=== PATIENT | male | born 1960 | race Caucasian/White ===

== ENCOUNTER 2017-02-16 20:22 | Inpatient (IN) | payer OTHER ==
[2017-02-16 21:54] VITALS: BMI 25.8
--- NOTE | 2017-02-16 22:10 | HP ---
CIWA Score - CIWA Score Nausea/Vomitin-Mild Nausea/No Vomiting Muscle Tremors: 3 Anxiety: 4-Mod. Anxious/Guarded Agitation: 3 Paroxysmal Sweats: 1-Minimal Palms Moist Orientation: 1-Uncertain about Date Tacttile Disturbances: 0-None Auditory Disturbances: 0-None Visual Disturbances: 0-None Headache: 1-Very Mild CIWA-Ar Total Score: 14 Admission [facility] - HPI Chief Complaint: withdrawal sx Allergies/Adverse Reactions: Allergies Allergy/AdvReac Type Severity Reaction Status Date / Time No Known Allergies Allergy Verified 04/17/16 11:19 History of Present Illness: 56 years old male with long history of alcohol xanax klonopin, cocaine opiate nicotine dependence has hypertension, hyperlipidemia, diabetes ii, hepatitis c = cirrhosis of the liver, gerd, copd, and depression, is admitted to detox patient fell 02/16/17 right foot swelling, x ray of the right foot 02/17/17 Exam Limitations: No Limitations - Ebola screening Have you traveled outside of the country in the last 21 days: No (N) Have you had contact with anyone from an Ebola affected area: No Have you been sick,other than usual withdrawal symptoms: No Do you have a fever: No - Review of Systems Constitutional: Changes in sleep, Weight Stable EENT: reports: Blurred Vision (eye glasses), Other (glaucoma) Respiratory: reports: SOB with Exertion Cardiac: reports: No Symptoms Reported GI: reports: Nausea, Poor Fluid Intake, Indigestion, Abdominal cramping : reports: No Symptoms Reported Musculoskeletal: reports: Back Pain, Joint Pain, Muscle Pain, Muscle Weakness ( right foot), Neck Pain Integumentary: reports: Other (multiple skin abrasion from fall 02/16/17 both legs) Neuro: reports: Seizure (06/2016, no treatment, cocaine related), Tremors Endocrine: reports: No Symptoms Reported Hematology: reports: No Symptoms Reported Psychiatric: reports: Judgement Intact, Depressed Other Systems: Reviewed and Negative Patient History - Patient Medical History Hx Anemia: No Hx Asthma: No Hx Chronic Obstructive Pulmonary Disease (COPD): No Hx Cancer: No Hx Cardiac Disorders: No Hx Congestive Heart Failure: No Hx Hypertension: Yes Hx Hypercholesterolemia: Yes Hx Pacemaker: No HX Cerebrovascular Accident: No Hx Seizures: Yes (2017 "early) Hx Dementia: No Hx Diabetes: Yes (NIDDM) Hx Gastrointestinal Disorders: Yes (acid reflux) Hx Liver Disease: No Hx Genitourinary Disorders: No Hx Sexually Transmitted Disorders: Yes (gonorrhea at age [age]) Hx Renal Disease (ESRD): No Hx Thyroid Disease: No Hx Human Immunodeficiency Virus (HIV): No Hx Hepatitis C: Yes Hx Depression: Yes Hx Suicide Attempt: Yes (2014 overdose) Hx Bipolar Disorder: No Hx Schizophrenia: No - Patient Surgical History Past Surgical History: Yes Hx Neurologic Surgery: No Hx Cataract Extraction: No Hx Cardiac Surgery: No Hx Lung Surgery: No Hx Breast Surgery: No Hx Breast Biopsy: No Hx Abdominal Surgery: No Hx Appendectomy: No Hx Cholecystectomy: Yes (1996) Hx Genitourinary Surgery: No Hx Orthopedic Surgery: No Anesthesia Reaction: No - PPD History Previous Implant?: Yes Documented Results: Negative w/proof Implanted On Prior [facility] Admission?: Yes Date: 04/15/16 Results: 0 mm PPD to be Administered?: No - Smoking Cessation Smoking history: Current every day smoker Have you smoked in the past 12 months: Yes Aproximately how many cigarettes per day: 40 Cigars Per Day: 0 Hx Chewing Tobacco Use: No Initiated information on smoking cessation: Yes 'Breaking Loose' booklet given: 02/16/17 - Substance & Tx. History Hx Alcohol Use: Yes Hx Substance Use: Yes Substance Use Type: Alcohol, Cocaine, Opiates, Tranquilizers Hx [facility] - Substances Abused Alprazolam (Xanax) Route: Oral Frequency: Daily Amount used: 14 mg Age of first use: 40 Date of Last Use: 02/12/17 Benzodiazepine (Klonopin) Route: Oral Frequency: Daily Amount used: 10 mg Age of first use: 39 Date of Last Use: 02/16/17 Family Disease History - Family Disease History Family Disease History: Diabetes: Grandparent, Mother (), Heart Disease : Father (), Other: Father, Mother Admission Physical Exam S - Vital Signs Vital Signs: Vital Signs - 24 hr 02/16/17 21:52 Temperature 97.0 F L Pulse Rate 58 L Respiratory 20 Rate Blood Pressure 116/72 - Physical General Appearance: Yes: Nourished, Appropriately Dressed, Mild Distress, Tremorous, Irritable, Sweating, Anxious HEENTM: Yes: Hearing grossly Normal, Normal ENT Inspection, Normocephalic, Normal Voice, Other (glaucoma both eyes) Respiratory: Yes: Chest Non-Tender, No Respiratory Distress, No Accessory Muscle Use, Hyperresonant Neck: Yes: Supple, Trachea in good position Breast: Yes: Breasts Symetrical Cardiology: Yes: Regular Rhythm, S1, S2, Bradycardia Abdominal: Yes: Non Tender, Soft, Decreased BS Genitourinary: Yes: Within Normal Limits Back: Yes: Normal Inspection Musculoskeletal: Yes: Gait Steady (cane), Back pain, Joint swelling (foot right) , Muscle Pain, Muscle weakness (right foot) Extremities: Yes: Non-Tender, Tremors, Swelling (right foot) Neurological: Yes: Alert, Normal Response, Depressed Affect Integumentary: Yes: Warm, Track Guidry, Other (multiple skin abrasion = legs from fall 02/16/17 denies head trauma) Lymphatic: Yes: Within Normal Limits - Diagnostic (1) Essential (primary) hypertension Current Visit: Yes Status: Chronic (2) Hypercholesterolemia Current Visit: Yes Status: Chronic (3) Methadone maintenance therapy patient Current Visit: Yes Status: Chronic Comment: 80 mg verification pending (4) Nicotine dependence Current Visit: Yes Status: Acute Qualifiers: Nicotine product type: cigarettes Substance use status: in withdrawal Qualified Code(s): F17.213 - Nicotine dependence, cigarettes, with withdrawal (5) Type 2 diabetes mellitus Current Visit: Yes Status: Chronic Qualifiers: Diabetes mellitus complication status: with ophthalmic complications Diabetes mellitus complication detail: with other ophthalmic complication Diabetes mellitus termite renewal inspector insulin use: without longterm use Qualified Code(s): E11.39 - Type 2 diabetes mellitus with other diabetic ophthalmic complication; Z79.4 - exterminator helper (current) use of insulin (6) Alcohol dependence with uncomplicated withdrawal Current Visit: Yes Status: Acute (7) Cocaine dependence, uncomplicated Current Visit: Yes Status: Chronic (8) GERD (gastroesophageal reflux disease) Current Visit: Yes Status: Chronic Qualifiers: Esophagitis presence: without esophagitis Qualified Code(s): K21.9 - Gastro-esophageal reflux disease without esophagitis (9) Bipolar II disorder Current Visit: Yes Status: Suspected (10) Hepatitis C Current Visit: Yes Status: Chronic Qualifiers: Viral hepatitis chronicity: unspecified Hepatic coma status: without hepatic coma Qualified Code(s): B19.20 - Unspecified viral hepatitis C without hepatic coma (11) Constipation Current Visit: Yes Status: Chronic Qualifiers: Constipation type: slow transit constipation Qualified Code(s): K59.01 - Slow transit constipation (12) Swelling of toe of right foot Current Visit: Yes Status: Acute Comment: right foot x ray pending (13) Glaucoma Current Visit: Yes Status: Chronic Qualifiers: Glaucoma type: unspecified Laterality: bilateral Qualified Code( s): H40.9 - Unspecified glaucoma Cleared for Admission [facility] - Detox or Rehab [facility] Level of Care: Medically Managed Detox Regimen/Protocol: Valium [facility] Breath Alcohol Content Breath Alcohol Content: 0 Urine Drug Screen - Results Drug Screen Negative: No Urine Drug Screen Results: ANNA-Cocaine, OPI-Opiates, BZO-Benzodiazepines, MTD- Methadone
[2017-02-16] MEDS ORDERED: diazePAM 5 MG TABLET PO PRN (22:21)
[2017-02-16] MEDS ORDERED: P-EPHED 60MG/TRIPROLIDI 2.5MG TABLET PO PRN (22:21)
[2017-02-16] MEDS ORDERED: NICOTINE POLACRILEX 4 MG GUM BC PRN (22:21)
[2017-02-16] MEDS ORDERED: diphenhydrAMINE HCL 50 MG CAPSULE PO PRN (22:21)
[2017-02-16] MEDS ORDERED: LOPERAMIDE HCL 2 MG CAPSULE PO PRN (22:21)
[2017-02-16] MEDS ORDERED: guaiFENesin/D-METHORPHAN HB 10 ML UNIT-DOSE CUPS PO PRN (22:21)
[2017-02-16] MEDS ORDERED: MAGNESIUM CITRATE 300 ML BOTTLE PO PRN (22:21)
[2017-02-16] MEDS ORDERED: diazePAM 5 MG TABLET PO ONE (22:21)
[2017-02-16] MEDS ORDERED: MENTHOL/PHENOL 1 EACH UD MM PRN (22:21)
[2017-02-16] MEDS ORDERED: MAGNESIUM HYDROX 2400MG/30ML ORAL SUSPENSION 30 ML CUP PO PRN (22:21)
[2017-02-16] MEDS ORDERED: ACETAMINOPHEN 325 MG TABLET (FP) PO PRN (22:21)
[2017-02-16] MEDS ORDERED: ALBUTEROL SO4 2.5/IPRATROPIUM 0.5 INH SOL 3 ML VIAL.NEB. NEB PRN (22:27)
[2017-02-16] MEDS ORDERED: ALBUTEROL SO4 6.7 GM HFA INHALER IH PRN (22:27)
[2017-02-16] MEDS: diazePAM 5 MG TABLET PO SCH (23:48)
[2017-02-17] MEDS: diazePAM 5 MG TABLET PO SCH ×3 (06:12→22:16)
[2017-02-17] MEDS: MAG HYDROX/AL HYDROX/SIMETH 30 ML UNIT-DOSE CUP PO PRN (06:17)
[2017-02-17] MEDS: sitaGLIPtin PHOSPHATE 100 MG TABLET (FP) PO SCH (07:42)
[2017-02-17] MEDS: LISINOPRIL 10 MG TABLET (FP) PO SCH (09:34)
[2017-02-17] MEDS: ASPIRIN 81 MG CHEWABLE TABLETS PO SCH (09:34)
[2017-02-17] MEDS: PRENATAL VITAMINS W/ FOLIC ACID TABLET (FP) PO SCH (09:34)
[2017-02-17] MEDS: METHADONE HCL 40 MG DISPERSABLE TABLET PO SCH (09:34)
[2017-02-17] MEDS: RANITIDINE HCL 150 MG TABLET (FP) PO SCH ×2 (09:34→22:16)
[2017-02-17] MEDS: NICOTINE 21 MG/24 HOURS TOPICAL PATCH TD SCH (09:36)
[2017-02-17 10:03] LABS: MCH 26.2 pg (25.7-33.7); MCHC 32.3 g/dl (32.0-35.9); MEAN PLT VOLUME 9.6 fl (7.5-11.1); PLATELET COUNT 121 K/MM3 (134-434); RDW 13.1 % (11.9-15.9); WHITE BLOOD COUNT 3.5 K/mm3 (4.0-10.0)
[2017-02-17 10:16] LABS: ALBUMIN 3.7 g/dl (3.4-5.0); ANION GAP 7 (8-16); CALCIUM 8.8 mg/dL (8.5-10.1); CO2 31 mmol/L (21-32); CREATININE 0.8 mg/dL (0.7-1.3); GLUCOSE,RANDOM 153 mg/dL (74-106); SGOT/AST 37 U/L (15-37); SGPT/ALT 32 U/L (12-78); TOT PROT 7.5 g/dl (6.4-8.2)
[2017-02-17 10:20] LABS: ALK PHOS 108 U/L (45-117); BILIRUBIN,TOTAL 0.4 mg/dL (0.2-1.0)
--- NOTE | 2017-02-17 11:15 | EKG ---
Test Reason : Blood Pressure : / mmHG Vent. Rate : 054 BPM Atrial Rate : 054 BPM P-R Int : 148 ms QRS Dur : 082 ms QT Int : 490 ms P-R-T Axes : 062 073 061 degrees QTc Int : 464 ms SINUS BRADYCARDIA MODERATE VOLTAGE CRITERIA FOR LVH, MAY BE NORMAL VARIANT BORDERLINE ECG NO PREVIOUS ECGS AVAILABLE Confirmed by ELA FELDMAN MD (2013) on 02/17/2017 11:14:56 AM Referred By: Confirmed By:ELA FELDMAN MD
--- NOTE | 2017-02-17 11:25 | CONSULT ---
[facility] Psychiatric Consult - Data Date of interview: 02/17/17 Admission source: [facility] Identifying data: This is 56 years old male with psychiatric hospitalization history, history of Schizoaffective disorder, intoxiocated with: Alcohol, Cocaine, Nicotine Substance Abuse History: - Smoking Cessation. Smoking history: Current every day smoker. Have you smoked in the past 12 months: Yes. Aproximately how many cigarettes per day: 40. Cigars Per Day: 0. Hx Chewing Tobacco Use: No. Initiated information on smoking cessation: Yes. 'Breaking Loose' booklet given : 02/16/17. - Substance & Tx. History. Hx Alcohol Use: Yes. Hx Substance Use : Yes. Substance Use Type: Alcohol, Cocaine, Opiates, Tranquilizers. Hx Substance [facility]: [facility] - Substances Abused. Alprazolam (Xanax). Route: Oral. Frequency: Daily. Amount used: 14 mg. Age of first use: 40. Date of Last Use: 02/12/17. Benzodiazepine (Klonopin). Route: Oral. Frequency: Daily. Amount used: 10 mg. Age of first use: 39. Date of Last Use: 02/16/17 Medical History: HTN, GERD, HepC+, Hypercholesterolemia, DM-2, Bilateral Glaucoma, Right Knee arthritis, MMTP 80mg poqd Psychiatric History: Patient reprots history of Bipolar Disorder, Schizoaffective disorder, reports taking prior to admission: Abilify 10mg poqd. Invega 3mg po bid. Trazodone 100mg po qhs. Pristiq 50mg poqd. Patient refusing medications during detox perotocol Physical/Sexual Abuse/Trauma History: Denies Additional Comment: Abilify 10mg poqd. Invega 3mg po bid. Trazodone 100mg po qhs. Pristiq 50mg poqd. Patient refusing medications during detox perotocol Mental Status Exam - Mental Status Exam Alert and Oriented to: Person Cognitive Function: Fair Patient Appearance: Well Groomed Mood: Apprehensive Affect: Mood Congruent Patient Behavior: Cooperative Speech Pattern: Appropriate Voice Loudness: Normal Thought Process: Goal Oriented Thought Disorder: Being Controlled Hallucinations: Denies Suicidal Ideation: Denies Homicidal Ideation: Denies Insight/Judgement: Fair Sleep: Difficulty falling asleep Appetite: Weight loss Muscle strength/Tone: Normal Gait/Station: Normal Additional Comments: Abilify 10mg poqd. Invega 3mg po bid. Trazodone 100mg po qhs. Pristiq 50mg poqd. Patient refusing medications during detox perotocol Psychiatric Findings - Problem List ([place] 1, 2,3) (1) Alcohol dependence with uncomplicated withdrawal Current Visit: Yes Status: Acute (2) Nicotine dependence Current Visit: Yes Status: Acute Qualifiers: Nicotine product type: cigarettes Substance use status: in withdrawal Qualified Code(s): F17.213 - Nicotine dependence, cigarettes, with withdrawal (3) Cocaine dependence, uncomplicated Current Visit: Yes Status: Chronic (4) Methadone maintenance therapy patient Current Visit: Yes Status: Chronic Comment: 80 mg verification pending (5) Bipolar II disorder Current Visit: Yes Status: Suspected (6) Alcohol dependence Current Visit: No Status: Acute (7) Alcohol dependence with withdrawal Current Visit: No Status: Acute Qualifiers: Complication of substance-induced condition: uncomplicated Qualified Code(s): F10.230 - Alcohol dependence with withdrawal, uncomplicated (8) Cocaine dependence Current Visit: No Status: Acute (9) Opioid dependence Current Visit: No Status: Acute (10) Schizoaffective disorder Current Visit: No Status: Chronic Qualifiers: Schizoaffective disorder type: bipolar Qualified Code(s): F25.0 - Schizoaffective disorder, bipolar type - Initial Treatment Plan Initial Treatment Plan: Abilify 10mg poqd. Invega 3mg po bid. Trazodone 100mg po qhs. Pristiq 50mg poqd. Patient refusing medications during detox perotocol
[2017-02-17] MEDS: LACTULOSE 20 GM/30 ML UDC (FOR ORAL USE ONLY) PO SCH (13:12)
--- NOTE | 2017-02-17 13:21 | PN ---
S CIWA - CIWA Score Nausea/Vomitin Muscle Tremors: 4-Moderate,w/Arms Extend Anxiety: 3 Agitation: 3 Paroxysmal Sweats: 3 Orientation: 0-Oriented Tacttile Disturbances: 3-Moderate Itch/Numb/Burn Auditory Disturbances: 2-Mild Harshness/Frighten Visual Disturbances: 0-None Headache: 0-None Present CIWA-Ar Total Score: 20 [facility] Progress Note (SOAP) Subjective: Body Aches, Sweating, Tremors, Stomach Cramping, Constipation. Objective: PT. A & O X 3, OBSERVED AMBULATING ON UNIT. NO ACUTE DISTRESS. PT. DENIES CHEST PAIN. 02/17/17 13:18 Vital Signs Temperature 98.0 F 02/17/17 09:51 Pulse Rate 73 02/17/17 09:51 Respiratory Rate 18 02/17/17 09:51 Blood Pressure 115/76 02/17/17 09:51 O2 Sat by Pulse Oximetry (%) Laboratory Tests 02/17/17 02/17/17 02/17/17 06:30 07:00 07:00 WBC 3.5 L D RBC 4.69 Hgb 12.3 Hct 38.0 MCV 81.0 MCH 26.2 MCHC 32.3 RDW 13.1 Plt Count 121 L MPV 9.6 Sodium 139 Potassium 4.2 Chloride 101 Carbon Dioxide 31 Anion Gap 7 L BUN 13 Creatinine 0.8 Creat Clearance w eGFR > 60 POC Glucometer 108 Random Glucose 153 H Calcium 8.8 Total Bilirubin 0.4 D AST 37 ALT 32 D Alkaline Phosphatase 108 Total Protein 7.5 Albumin 3.7 LABS NOTED. Assessment: 02/17/17 13:19 WITHDRAWAL SYMPTOMS. Plan: CONTINUE DETOX.
[2017-02-17] MEDS ORDERED: SENNOSIDES 8.6MG TABLET (FP) PO SCH (22:00)
[2017-02-17] MEDS: ATORVASTATIN CA 20 MG TABLET (FP) PO SCH (22:16)
[2017-02-17] MEDS: THIAMINE HCL 100 MG TABLET (FP) PO SCH (22:21)
[2017-02-17] MEDS: LATANOPROST 0.005% OPHTH SOLN 2.5ML BOTTLE OU SCH (22:54)
[2017-02-18] MEDS: MAG HYDROX/AL HYDROX/SIMETH 30 ML UNIT-DOSE CUP PO PRN ×2 (00:06→17:18)
[2017-02-18] MEDS: METHADONE HCL 40 MG DISPERSABLE TABLET PO SCH (05:55)
[2017-02-18] MEDS: sitaGLIPtin PHOSPHATE 100 MG TABLET (FP) PO SCH (07:43)
[2017-02-18] MEDS ORDERED: INSULIN (NOVOLOG) ASPART 100 UNITS/ML 10ML VIAL ONE (07:47)
[2017-02-18] MEDS: INSULIN SLIDING SCALE (NOVOLOG) 1 VIAL SQ SCH (07:56)
[2017-02-18] MEDS: ASPIRIN 81 MG CHEWABLE TABLETS PO SCH (10:41)
[2017-02-18] MEDS: diazePAM 5 MG TABLET PO SCH ×2 (10:41→22:34)
[2017-02-18] MEDS: LISINOPRIL 10 MG TABLET (FP) PO SCH (10:42)
[2017-02-18] MEDS: PRENATAL VITAMINS W/ FOLIC ACID TABLET (FP) PO SCH (10:42)
[2017-02-18] MEDS: NICOTINE 21 MG/24 HOURS TOPICAL PATCH TD SCH (10:42)
[2017-02-18] MEDS: LACTULOSE 20 GM/30 ML UDC (FOR ORAL USE ONLY) PO SCH (10:42)
[2017-02-18] MEDS: RANITIDINE HCL 150 MG TABLET (FP) PO SCH ×2 (10:42→22:34)
[2017-02-18 11:44] LABS: URINE APPEARANCE CLEAR; URINE BILIRUBIN NEGATIVE (NEGATIVE); URINE BLOOD NEGATIVE (NEGATIVE); URINE COLOR YELLOW; URINE GLUCOSE (UA) NEGATIVE (NEGATIVE); URINE KETONE NEGATIVE (NEGATIVE); URINE LEUK ESTERASE TRACE (NEGATIVE); URINE NITRITE NEGATIVE (NEGATIVE); URINE PROTEIN NEGATIVE (NEGATIVE); URINE UROBILINOGEN NEGATIVE mg/dL (0.2-1.0)
[2017-02-18 11:59] LABS: URINE RBC <1 /hpf (0-3); URINE WBC 2 /hpf (3-5)
--- NOTE | 2017-02-18 12:14 | PN ---
S CIWA - CIWA Score Nausea/Vomitin Muscle Tremors: 2 Anxiety: 2 Agitation: 2 Paroxysmal Sweats: 3 Orientation: 0-Oriented Tacttile Disturbances: 2-Mild Itch/Numbness/Burn Auditory Disturbances: 0-None Visual Disturbances: 0-None Headache: 0-None Present CIWA-Ar Total Score: 13 BHS Progress Note (SOAP) Subjective: interrupted sleep, sweats , increased dreams Objective: 02/18/17 12:14 Vital Signs Temperature 97.2 F L 02/18/17 10:27 Pulse Rate 65 02/18/17 10:27 Respiratory Rate 18 02/18/17 10:27 Blood Pressure 129/80 02/18/17 10:27 O2 Sat by Pulse Oximetry (%) Laboratory Tests 02/17/17 02/17/17 02/17/17 06:30 07:00 07:00 WBC 3.5 L D RBC 4.69 Hgb 12.3 Hct 38.0 MCV 81.0 MCH 26.2 MCHC 32.3 RDW 13.1 Plt Count 121 L MPV 9.6 Sodium 139 Potassium 4.2 Chloride 101 Carbon Dioxide 31 Anion Gap 7 L BUN 13 Creatinine 0.8 Creat Clearance w eGFR > 60 POC Glucometer 108 Random Glucose 153 H Calcium 8.8 Total Bilirubin 0.4 D AST 37 ALT 32 D Alkaline Phosphatase 108 Total Protein 7.5 Albumin 3.7 Urine Color Urine Appearance Urine pH Urine Protein Urine Glucose (UA) Urine Ketones Urine Blood Urine Nitrite Urine Bilirubin Urine Urobilinogen Ur Leukocyte Esterase Urine RBC Urine WBC RPR Titer 02/17/17 02/18/17 02/18/17 07:00 05:55 10:10 WBC RBC Hgb Hct MCV MCH MCHC RDW Plt Count MPV Sodium Potassium Chloride Carbon Dioxide Anion Gap BUN Creatinine Creat Clearance w eGFR POC Glucometer 210 Random Glucose Calcium Total Bilirubin AST ALT Alkaline Phosphatase Total Protein Albumin Urine Color Yellow Urine Appearance Clear Urine pH 6.0 Urine Protein Negative Urine Glucose (UA) Negative Urine Ketones Negative Urine Blood Negative Urine Nitrite Negative Urine Bilirubin Negative Urine Urobilinogen Negative Ur Leukocyte Esterase Trace Urine RBC <1 Urine WBC 2 RPR Titer Nonreactive pt aox3 in nad , ambulating with a cane Assessment: 02/18/17 12:15 withdrawal sx;s Plan: cont. detox increase fluids analgesic balm tinactin
[2017-02-18] MEDS: ATORVASTATIN CA 20 MG TABLET (FP) PO SCH (22:33)
[2017-02-18] MEDS: TOLNAFTATE 1% CREAM 15 GM TUBE TP SCH (22:34)
[2017-02-18] MEDS: THIAMINE HCL 100 MG TABLET (FP) PO SCH (22:34)
[2017-02-18] MEDS: LATANOPROST 0.005% OPHTH SOLN 2.5ML BOTTLE OU SCH (22:35)
[2017-02-18] MEDS: METHYL SALICYLATE/MENTHOL OINT 30 GM TUBE TP SCH (22:36)
[2017-02-19] MEDS: METHADONE HCL 40 MG DISPERSABLE TABLET PO SCH (05:49)
[2017-02-19] MEDS: sitaGLIPtin PHOSPHATE 100 MG TABLET (FP) PO SCH (07:25)
[2017-02-19] MEDS: INSULIN SLIDING SCALE (NOVOLOG) 1 VIAL SQ SCH (07:25)
[2017-02-19] MEDS: ASPIRIN 81 MG CHEWABLE TABLETS PO SCH (10:41)
[2017-02-19] MEDS: METHYL SALICYLATE/MENTHOL OINT 30 GM TUBE TP SCH ×2 (10:41→23:10)
[2017-02-19] MEDS: LACTULOSE 20 GM/30 ML UDC (FOR ORAL USE ONLY) PO SCH (10:41)
[2017-02-19] MEDS: RANITIDINE HCL 150 MG TABLET (FP) PO SCH ×2 (10:41→23:11)
[2017-02-19] MEDS: PRENATAL VITAMINS W/ FOLIC ACID TABLET (FP) PO SCH (10:41)
[2017-02-19] MEDS: TOLNAFTATE 1% CREAM 15 GM TUBE TP SCH ×2 (10:42→23:10)
[2017-02-19] MEDS: LISINOPRIL 10 MG TABLET (FP) PO SCH (10:43)
[2017-02-19] MEDS: diazePAM 5 MG TABLET PO SCH ×2 (10:43→23:11)
[2017-02-19] MEDS: NICOTINE 21 MG/24 HOURS TOPICAL PATCH TD SCH (10:44)
--- NOTE | 2017-02-19 15:21 | PN ---
[facility] Progress Note (SOAP) Subjective: Tremors, H/A, Body Aches, sweating. Objective: PT. A & O X 3, OBSERVED AMBULATING ON UNIT. NO ACUTE DISTRESS. 02/19/17 15:19 Vital Signs Temperature 98.3 F 02/19/17 10:09 Pulse Rate 63 02/19/17 10:09 Respiratory Rate 18 02/19/17 10:09 Blood Pressure 113/71 02/19/17 10:09 O2 Sat by Pulse Oximetry (%) Laboratory Tests 02/17/17 02/17/17 02/17/17 06:30 07:00 07:00 WBC 3.5 L D RBC 4.69 Hgb 12.3 Hct 38.0 MCV 81.0 MCH 26.2 MCHC 32.3 RDW 13.1 Plt Count 121 L MPV 9.6 Sodium 139 Potassium 4.2 Chloride 101 Carbon Dioxide 31 Anion Gap 7 L BUN 13 Creatinine 0.8 Creat Clearance w eGFR > 60 POC Glucometer 108 Random Glucose 153 H Calcium 8.8 Total Bilirubin 0.4 D AST 37 ALT 32 D Alkaline Phosphatase 108 Total Protein 7.5 Albumin 3.7 Urine Color Urine Appearance Urine pH Ur Specific [place] Urine Protein Urine Glucose (UA) Urine Ketones Urine Blood Urine Nitrite Urine Bilirubin Urine Urobilinogen Ur Leukocyte Esterase Urine RBC Urine WBC RPR Titer 02/17/17 02/18/17 02/18/17 07:00 05:55 10:10 WBC RBC Hgb Hct MCV MCH MCHC RDW Plt Count MPV Sodium Potassium Chloride Carbon Dioxide Anion Gap BUN Creatinine Creat Clearance w eGFR POC Glucometer 210 Random Glucose Calcium Total Bilirubin AST ALT Alkaline Phosphatase Total Protein Albumin Urine Color Yellow Urine Appearance Clear Urine pH 6.0 Ur Specific [place] 1.020 Urine Protein Negative Urine Glucose (UA) Negative Urine Ketones Negative Urine Blood Negative Urine Nitrite Negative Urine Bilirubin Negative Urine Urobilinogen Negative Ur Leukocyte Esterase Trace Urine RBC <1 Urine WBC 2 RPR Titer Nonreactive 02/19/17 05:48 WBC RBC Hgb Hct MCV MCH MCHC RDW Plt Count MPV Sodium Potassium Chloride Carbon Dioxide Anion Gap BUN Creatinine Creat Clearance w eGFR POC Glucometer 145 Random Glucose Calcium Total Bilirubin AST ALT Alkaline Phosphatase Total Protein Albumin Urine Color Urine Appearance Urine pH Ur Specific [place] Urine Protein Urine Glucose (UA) Urine Ketones Urine Blood Urine Nitrite Urine Bilirubin Urine Urobilinogen Ur Leukocyte Esterase Urine RBC Urine WBC RPR Titer LABS NOTED. Assessment: 02/19/17 15:20 WITHDRAWAL SYMPTOMS. Plan: CONTINUE DETOX.
[2017-02-19] MEDS: ATORVASTATIN CA 20 MG TABLET (FP) PO SCH (23:10)
[2017-02-19] MEDS: THIAMINE HCL 100 MG TABLET (FP) PO SCH (23:11)
[2017-02-19] MEDS: LATANOPROST 0.005% OPHTH SOLN 2.5ML BOTTLE OU SCH (23:12)
[2017-02-20] MEDS: METHADONE HCL 40 MG DISPERSABLE TABLET PO SCH (05:41)
[2017-02-20] MEDS: MAG HYDROX/AL HYDROX/SIMETH 30 ML UNIT-DOSE CUP PO PRN (05:41)
[2017-02-20] MEDS: sitaGLIPtin PHOSPHATE 100 MG TABLET (FP) PO SCH (07:51)
[2017-02-20] MEDS: INSULIN SLIDING SCALE (NOVOLOG) 1 VIAL SQ SCH (07:51)
[2017-02-20 09:23] VITALS: BP 127/78; PULSE 67; TEMP 98.8
[2017-02-20] MEDS: LACTULOSE 20 GM/30 ML UDC (FOR ORAL USE ONLY) PO SCH (09:42)
[2017-02-20] MEDS: RANITIDINE HCL 150 MG TABLET (FP) PO SCH (09:42)
[2017-02-20] MEDS: METHYL SALICYLATE/MENTHOL OINT 30 GM TUBE TP SCH (09:43)
[2017-02-20] MEDS: ASPIRIN 81 MG CHEWABLE TABLETS PO SCH (09:43)
[2017-02-20] MEDS: PRENATAL VITAMINS W/ FOLIC ACID TABLET (FP) PO SCH (09:43)
[2017-02-20] MEDS: NICOTINE 21 MG/24 HOURS TOPICAL PATCH TD SCH (09:43)
[2017-02-20] MEDS: LISINOPRIL 10 MG TABLET (FP) PO SCH (09:43)
[2017-02-20] MEDS: TOLNAFTATE 1% CREAM 15 GM TUBE TP SCH (09:43)
[2017-02-20] MEDS ORDERED: diazePAM 5 MG TABLET PO SCH (10:00)
--- NOTE | 2017-02-20 13:56 | DS ---
[facility] Detox Discharge Summary Admission Date: 02/16/17 Discharge Date: 02/20/17 - History Present History: Alcohol Dependence, Opioid Dependence, MMTP Pertinent Past History: DMT2 COPD GERD Glaucoma HLD HTN Hepatitis C Seizure disorder - Physical Exam Results Vital Signs: Vital Signs Temperature 98.8 F 02/20/17 09:23 Pulse Rate 67 02/20/17 09:23 Respiratory Rate 18 02/20/17 09:23 Blood Pressure 127/78 02/20/17 09:23 O2 Sat by Pulse Oximetry (%) Pertinent Admission Physical Exam Findings: Withdrawal symptoms Laboratory Tests 02/17/17 02/17/17 02/17/17 06:30 07:00 07:00 WBC 3.5 L D RBC 4.69 Hgb 12.3 Hct 38.0 MCV 81.0 MCH 26.2 MCHC 32.3 RDW 13.1 Plt Count 121 L MPV 9.6 Sodium 139 Potassium 4.2 Chloride 101 Carbon Dioxide 31 Anion Gap 7 L BUN 13 Creatinine 0.8 Creat Clearance w eGFR > 60 POC Glucometer 108 Random Glucose 153 H Calcium 8.8 Total Bilirubin 0.4 D AST 37 ALT 32 D Alkaline Phosphatase 108 Total Protein 7.5 Albumin 3.7 Urine Color Urine Appearance Urine pH Ur Specific [place] Urine Protein Urine Glucose (UA) Urine Ketones Urine Blood Urine Nitrite Urine Bilirubin Urine Urobilinogen Ur Leukocyte Esterase Urine RBC Urine WBC RPR Titer 02/17/17 02/18/17 02/18/17 07:00 05:55 10:10 WBC RBC Hgb Hct MCV MCH MCHC RDW Plt Count MPV Sodium Potassium Chloride Carbon Dioxide Anion Gap BUN Creatinine Creat Clearance w eGFR POC Glucometer 210 Random Glucose Calcium Total Bilirubin AST ALT Alkaline Phosphatase Total Protein Albumin Urine Color Yellow Urine Appearance Clear Urine pH 6.0 Ur Specific [place] 1.020 Urine Protein Negative Urine Glucose (UA) Negative Urine Ketones Negative Urine Blood Negative Urine Nitrite Negative Urine Bilirubin Negative Urine Urobilinogen Negative Ur Leukocyte Esterase Trace Urine RBC <1 Urine WBC 2 RPR Titer Nonreactive 02/19/17 02/20/17 05:48 06:18 WBC RBC Hgb Hct MCV MCH MCHC RDW Plt Count MPV Sodium Potassium Chloride Carbon Dioxide Anion Gap BUN Creatinine Creat Clearance w eGFR POC Glucometer 145 104 Random Glucose Calcium Total Bilirubin AST ALT Alkaline Phosphatase Total Protein Albumin Urine Color Urine Appearance Urine pH Ur Specific [place] Urine Protein Urine Glucose (UA) Urine Ketones Urine Blood Urine Nitrite Urine Bilirubin Urine Urobilinogen Ur Leukocyte Esterase Urine RBC Urine WBC RPR Titer Labs noted - Treatment Hospital Course: Detox Protocol Followed, Detoxed Safely, Responded well, Discharged Condition Good - Medication Discharge Medications: Ambulatory Orders Aspirin [ASA -] 81 mg PO DAILY 02/16/17 Atorvastatin Ca [Lipitor] 20 mg PO HS 02/16/17 Esomeprazole Magnesium [Nexium 24Hr] 40 mg PO DAILY 02/16/17 Lactulose (Oral Use) [Cephulac -] 20 mg PO DAILY 02/16/17 Lisinopril [Prinivil] 20 mg PO DAILY 02/16/17 Sitagliptin Phosphate [Januvia -] 100 mg PO DAILY@0700 02/16/17 - Diagnosis (1) Alcohol dependence with uncomplicated withdrawal Status: Acute (2) Nicotine dependence Status: Chronic Qualifiers: Nicotine product type: cigarettes Substance use status: in withdrawal Qualified Code(s): F17.213 - Nicotine dependence, cigarettes, with withdrawal (3) Essential (primary) hypertension Status: Chronic (4) GERD (gastroesophageal reflux disease) Status: Chronic Qualifiers: Esophagitis presence: without esophagitis Qualified Code(s): K21.9 - Gastro-esophageal reflux disease without esophagitis (5) Glaucoma Status: Chronic Qualifiers: Glaucoma type: unspecified Laterality: bilateral Qualified Code( s): H40.9 - Unspecified glaucoma (6) Hepatitis C Status: Chronic Qualifiers: Viral hepatitis chronicity: unspecified Hepatic coma status: without hepatic coma Qualified Code(s): B19.20 - Unspecified viral hepatitis C without hepatic coma (7) Hypercholesterolemia Status: Chronic (8) Methadone maintenance therapy patient Status: Chronic (9) Type 2 diabetes mellitus Status: Chronic Qualifiers: Diabetes mellitus complication status: with ophthalmic complications Diabetes mellitus complication detail: with other ophthalmic complication Diabetes mellitus halfway insulin use: without halfway use Qualified Code(s): E11.39 - Type 2 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
== END 2017-02-20 09:57 | disposition home or self-care (01) | DRG 897 ==
LOC: YASAS 20:22 → Y3N 22:26
PROVIDERS: ADMIT Internal Medicine; ATTEND Internal Medicine
PROC: HZ2ZZZZ Detoxification Services for Substance Abuse Treatment (ICD-10-PCS; principal; 2017-02-16)
DX: F10.230 Alcohol dependence with withdrawal, uncomplicated (principal); F11.20 Opioid dependence, uncomplicated; F14.20 Cocaine dependence, uncomplicated; F31.81 Bipolar II disorder; F17.213 Nicotine dependence, cigarettes, with withdrawal; F25.0 Schizoaffective disorder, bipolar type; I10 Essential (primary) hypertension; K21.9 Gastro-esophageal reflux disease without esophagitis; H40.9 Unspecified glaucoma; J44.9 Chronic obstructive pulmonary disease, unspecified; B19.20 Unspecified viral hepatitis C without hepatic coma; E78.00 Pure hypercholesterolemia, unspecified; K59.01 Slow transit constipation; E11.39 Type 2 diabetes mellitus with other diabetic ophthalmic complication; Z79.4 Long term (current) use of insulin; M79.89 Other specified soft tissue disorders; B35.3 Tinea pedis; Z86.69 Personal history of other diseases of the nervous system and sense organs; Z87.438 Personal history of other diseases of male genital organs; Z91.5 Personal history of self-harm
CPT/HCPCS: 36415; 73630-TC-RT; 80053; 81003; 81015; 85027; 86593; 93005; 93010

== ENCOUNTER 2017-02-22 17:46 | Inpatient (IN) | payer OTHER ==
[2017-02-22 18:05] VITALS: BMI 26.9
--- NOTE | 2017-02-22 18:25 | HP ---
[facility] Re[facility] Assess/Revision - Admission History Admitted to Rehab from: [facility] Date of Admission to Rehab: 02/22/17 - Vital signs Vital Signs: Vital Signs Period Temp Pulse Resp BP Sys/Ca Pulse Ox Last 24 Hr 97.3 F 67 18 103/67 - Findings Detox History & Physical reviewed: Yes Concur with findings: Yes Comments/Additional Findings: COMPLETED DETOX 02/20/17, ADMITTED TO REHAB DENIES PHYSICAL MENTAL CHANGED SINCE DISCHARGED.
[2017-02-22] MEDS ORDERED: P-EPHED 60MG/TRIPROLIDI 2.5MG TABLET PO PRN (18:27)
[2017-02-22] MEDS ORDERED: NICOTINE POLACRILEX 4 MG GUM BUC PRN (18:27)
[2017-02-22] MEDS ORDERED: LOPERAMIDE HCL 2 MG CAPSULE PO PRN (18:27)
[2017-02-22] MEDS ORDERED: MAG HYDROX/AL HYDROX/SIMETH 30 ML UNIT-DOSE CUP PO PRN (18:27)
[2017-02-22] MEDS ORDERED: diphenhydrAMINE HCL 50 MG CAPSULE PO PRN (18:27)
[2017-02-22] MEDS ORDERED: guaiFENesin/D-METHORPHAN HB 10 ML UNIT-DOSE CUPS PO PRN (18:27)
[2017-02-22] MEDS ORDERED: ACETAMINOPHEN 325 MG TABLET (FP) PO PRN (18:27)
[2017-02-22] MEDS ORDERED: MAGNESIUM CITRATE 300 ML BOTTLE PO PRN (18:27)
[2017-02-22] MEDS ORDERED: MAGNESIUM HYDROX 2400MG/30ML ORAL SUSPENSION 30 ML CUP PO PRN (18:27)
[2017-02-22] MEDS ORDERED: MENTHOL/PHENOL 1 EACH UD MM PRN (18:27)
[2017-02-22] MEDS ORDERED: CYCLOBENZAPRINE HCL 10 MG TABLET (FP) PO PRN (18:33)
[2017-02-22] MEDS ORDERED: INSULIN SLIDING SCALE (NOVOLOG) 1 VIAL SQ SCH (22:00)
[2017-02-22] MEDS: RANITIDINE HCL 150 MG TABLET (FP) PO SCH (22:48)
[2017-02-22] MEDS: THIAMINE HCL 100 MG TABLET (FP) PO SCH (22:48)
[2017-02-22] MEDS: LIDOCAINE PATCH REMOVAL MC SCH (22:49)
[2017-02-23] MEDS: INSULIN SLIDING SCALE (NOVOLOG) 1 VIAL SQ SCH (06:02)
[2017-02-23] MEDS: sitaGLIPtin PHOSPHATE 100 MG TABLET (FP) PO SCH (06:02)
[2017-02-23] MEDS: METHADONE HCL 40 MG DISPERSABLE TABLET PO SCH (09:48)
[2017-02-23] MEDS: PRENATAL VITAMINS W/ FOLIC ACID TABLET (FP) PO SCH (09:50)
[2017-02-23] MEDS: ASPIRIN 81 MG CHEWABLE TABLETS PO SCH (09:50)
[2017-02-23] MEDS: LACTULOSE 20 GM/30 ML UDC (FOR ORAL USE ONLY) PO SCH (09:50)
[2017-02-23] MEDS: ATORVASTATIN CA 20 MG TABLET (FP) PO SCH (09:51)
[2017-02-23] MEDS: LIDOCAINE 5% TOPICAL PATCH TP SCH (09:51)
[2017-02-23] MEDS: NICOTINE 21 MG/24 HOURS TOPICAL PATCH TD SCH (09:51)
[2017-02-23] MEDS: RANITIDINE HCL 150 MG TABLET (FP) PO SCH ×2 (09:52→21:23)
[2017-02-23] MEDS: LISINOPRIL 20 MG TABLET (FP) PO SCH (09:53)
--- NOTE | 2017-02-23 14:32 | PN ---
[facility] Progress Note Note: patient reported falling against sharp corner of wall while playing ping pong otday, injuring right arm, pain relieved by tylenol but still hurst 09/03. o/e Full ROM, no swelling no laceration no bony tenderness, painful muscle on deep palpation upper arm. a/p traum right arm muscle - tyleno prn, bygay bid, naproxen prn if above not effective d/w nurse and patient occurrence report compelted.
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
[2017-02-23] MEDS ORDERED: NAPROXEN 500 MG TABLET (FP) PO PRN (15:00)
[2017-02-23] MEDS: LIDOCAINE PATCH REMOVAL MC SCH (21:23)
[2017-02-23] MEDS: THIAMINE HCL 100 MG TABLET (FP) PO SCH (21:23)
[2017-02-23] MEDS: METHYL SALICYLATE/MENTHOL OINT 30 GM TUBE TP SCH (21:25)
[2017-02-23] MEDS ORDERED: risperiDONE 1 MG TABLET (FP) PO SCH (22:00)
[2017-02-23] MEDS ORDERED: NAPROXEN 500 MG TABLET (FP) PO SCH (22:00)
[2017-02-24] MEDS: sitaGLIPtin PHOSPHATE 100 MG TABLET (FP) PO SCH (06:34)
[2017-02-24] MEDS: METHADONE HCL 40 MG DISPERSABLE TABLET PO SCH (06:34)
[2017-02-24] MEDS: INSULIN SLIDING SCALE (NOVOLOG) 1 VIAL SQ SCH (06:36)
[2017-02-24 07:04] VITALS: BP 139/71; PULSE 61; TEMP 98.3
[2017-02-24] MEDS: LACTULOSE 20 GM/30 ML UDC (FOR ORAL USE ONLY) PO SCH (10:42)
[2017-02-24] MEDS: PRENATAL VITAMINS W/ FOLIC ACID TABLET (FP) PO SCH (10:42)
[2017-02-24] MEDS: LISINOPRIL 20 MG TABLET (FP) PO SCH (10:42)
[2017-02-24] MEDS: NICOTINE 21 MG/24 HOURS TOPICAL PATCH TD SCH (10:42)
[2017-02-24] MEDS: RANITIDINE HCL 150 MG TABLET (FP) PO SCH (10:42)
[2017-02-24] MEDS: METHYL SALICYLATE/MENTHOL OINT 30 GM TUBE TP SCH (10:42)
[2017-02-24] MEDS: ASPIRIN 81 MG CHEWABLE TABLETS PO SCH (10:42)
[2017-02-24] MEDS: ATORVASTATIN CA 20 MG TABLET (FP) PO SCH (10:42)
[2017-02-24] MEDS: LIDOCAINE 5% TOPICAL PATCH TP SCH (10:43)
--- NOTE | 2017-02-24 10:46 | PN ---
Psychiatric Progress Note Vital Signs: Vital Signs Period Temp Pulse Resp BP Sys/Ca Pulse Ox Last 24 Hr 97.7 F-98.3 F 51-61 18-18 134-139/71-76 Date of Session: 02/24/17 Chief Complaint:: leaving [facility] HPI: Patient is a 56 year old admitted on 02/22 decided to leave [facility], patient with history of alcohol, cocaine, opioid, nicotine dependence comorbid Schizoaffective disorder. ROS: WNL Current Medications: Active Medications Generic Name Dose Route Start Last Admin Trade Name Freq PRN Reason Stop Dose Admin Acetaminophen 650 mg 02/22/17 18:27 Tylenol - PO Q4H PRN FEVER OR PAIN Al Hydroxide/Mg Hydroxide 30 ml 02/22/17 18:27 Mylanta Oral Suspension - PO Q6H PRN DYSPEPSIA Aspirin 81 mg 02/23/17 10:00 02/24/17 10:42 Asa - PO 81 mg DAILY FAUSTINO Administration Atorvastatin Calcium 20 mg 02/23/17 10:00 02/24/17 10:42 Lipitor - PO 20 mg DAILY FAUSTINO Administration Cyclobenzaprine HCl 10 mg 02/22/17 18:33 Flexeril - PO TID PRN MUSCLE SPASMS Diphenhydramine HCl 50 mg 02/22/17 18:27 Benadryl - PO HSMR1 PRN FOR ITCHING Eucalyptus/Menthol/Phenol/Sorbitol 1 each 02/22/17 18:27 Cepastat Lozenge - MM Q4H PRN SORE THROAT Guaifenesin 10 ml 02/22/17 18:27 Robitussin Dm - PO Q6H PRN COUGH Insulin Aspart 1 vial 02/23/17 07:00 02/24/17 06:36 Novolog Vial Sliding Scale - SQ Not Given [facility] Protocol Lactulose 20 gm 02/23/17 10:00 02/24/17 10:42 Cephulac (Oral Use) PO 20 gm DAILY FAUSTINO Administration Lidocaine 1 patch 02/23/17 10:00 02/24/17 10:43 Lidoderm Patch - TP Not Given DAILY FAUSTINO Lisinopril 20 mg 02/23/17 10:00 02/24/17 10:42 Prinivil PO Not Given DAILY FAUSTINO Loperamide HCl 4 mg 02/22/17 18:27 Imodium - PO Q6H PRN DIARRHEA Magnesium Citrate 300 ml 02/22/17 18:27 Citroma - PO 02/24/17 18:28 Q48H PRN CONSTIPATION Magnesium Hydroxide 30 ml 02/22/17 18:27 Milk Of Magnesia - PO DAILY PRN CONSTIPATION Methadone HCl 80 mg 02/23/17 07:45 02/24/17 06:34 Dolophine - PO 80 mg DAILY@0600 FAUSTINO Administration Methyl Salicylate 1 applic 02/23/17 22:00 02/24/17 10:42 Man-[place] - TP Not Given BID FAUSTINO Miscellaneous 1 each 02/22/17 22:00 02/23/17 21:23 Lidoderm Patch Removal MC Not Given DAILY@2200 [facility] Naproxen 500 mg 02/23/17 15:00 02/24/17 10:42 Naprosyn - PO 500 mg BID PRN Administration PAIN LEVEL 1-5 Nicotine 21 mg 02/23/17 10:00 02/24/17 10:42 Nicoderm Patch - TD Not Given DAILY [facility] Nicotine Polacrilex 4 mg 02/22/17 18:27 Nicorette Gum - BUC Q2H PRN NICOTINE REPLACEMENT RX Multivit/Folic Acid/Iron 1 tab 02/23/17 10:00 02/24/17 10:42 Vitamins (Sjr) - PO 1 tab DAILY FAUSTINO Administration Pseudoephedrine/Triprolidine 1 combo 02/22/17 18:27 Actifed - PO TID PRN NASAL CONGESTION Ranitidine HCl 150 mg 02/22/17 22:00 02/24/17 10:42 Zantac - PO 150 mg BID FAUSTINO Administration Risperidone 1 mg 02/23/17 22:00 02/23/17 21:23 Risperdal - PO 1 mg HS FAUSTINO Administration Sitagliptin Phosphate 100 mg 02/23/17 07:00 02/24/17 06:34 Januvia - PO 100 mg DAILY@0700 FAUSTINO Administration Thiamine HCl 100 mg 02/22/17 22:00 02/23/17 21:23 Vitamin B1 - PO 100 mg HS FAUSTINO Administration Current Side Effect: No Lab tests ordered: No Lab tests reviewed: Yes Provider note:: Met with the patient to explore reasons for leaving, patient reported he has a personal issues that needs his presents, encouraged patient to stay in treatment but he continued his dicahrge process. He denies suicidal and homiciled thoughts, scripts provided, stable for [facility]a discharge. Total face to face time:: 15 Mental Status Exam - Mental Status Exam Alert and Oriented to: Time, Place, Person Cognitive Function: Good Patient Appearance: Well Groomed Affect: Appropriate, Mood Congruent Patient Behavior: Appropriate, Cooperative Speech Pattern: Clear, Appropriate Voice Loudness: Normal Thought Process: Goal Oriented Thought Disorder: Not Present Hallucinations: Denies Suicidal Ideation: Denies Homicidal Ideation: Denies Insight/Judgement: Fair Sleep: Fair Appetite: Fair Muscle strength/Tone: Normal Gait/Station: Normal Psychiatric Treatment Plan - Problem List (1) Alcohol dependence Current Visit: Yes (2) Cocaine dependence Current Visit: Yes (3) Nicotine dependence Current Visit: Yes Qualifiers: Nicotine product type: cigarettes Substance use status: in withdrawal Qualified Code(s): F17.213 - Nicotine dependence, cigarettes, with withdrawal (4) Opioid dependence Current Visit: Yes (5) Schizoaffective disorder Current Visit: Yes Qualifiers: Schizoaffective disorder type: bipolar Qualified Code(s): F25.0 - Schizoaffective disorder, bipolar type
== END 2017-02-24 11:45 | disposition left against medical advice (07) | DRG 894 ==
LOC: YASAS 17:46 → Y5N 20:27
PROVIDERS: ADMIT Psychiatry & Neurology Psychiatry; ATTEND Psychiatry & Neurology Psychiatry
PROC: HZ42ZZZ Group Counseling for Substance Abuse Treatment, Cognitive-Behavioral (ICD-10-PCS; principal; 2017-02-22)
DX: F11.20 Opioid dependence, uncomplicated (principal); F14.20 Cocaine dependence, uncomplicated; F17.213 Nicotine dependence, cigarettes, with withdrawal; F10.20 Alcohol dependence, uncomplicated; F25.0 Schizoaffective disorder, bipolar type; I10 Essential (primary) hypertension; E11.9 Type 2 diabetes mellitus without complications; K21.9 Gastro-esophageal reflux disease without esophagitis; J44.9 Chronic obstructive pulmonary disease, unspecified; E78.5 Hyperlipidemia, unspecified; B18.2 Chronic viral hepatitis C; K74.60 Unspecified cirrhosis of liver; B35.3 Tinea pedis
CPT/HCPCS: J2794

== ENCOUNTER 2021-05-29 13:42 | Inpatient (IN) | payer OTHER ==
[2021-05-29] MEDS ORDERED: LOPERAMIDE HCL 2 MG CAPSULE PO PRN (14:56)
[2021-05-29] MEDS ORDERED: NICOTINE 10 MG CARTRIDGE (INHALER) IH PRN (14:56)
[2021-05-29] MEDS ORDERED: ACETAMINOPHEN 325 MG TABLET (FP) PO PRN (14:56)
[2021-05-29] MEDS ORDERED: P-EPHED 60MG/TRIPROLIDI 2.5MG TABLET PO PRN (14:56)
[2021-05-29] MEDS ORDERED: MAG HYDROX/AL HYDROX/SIMETH 30 ML UNIT-DOSE CUP PO PRN (14:56)
[2021-05-29] MEDS ORDERED: guaiFENesin 200 MG/10 ML 10 ML UNIT-DOSE CUPS PO PRN (14:56)
[2021-05-29] MEDS ORDERED: MAGNESIUM CITRATE 300 ML BOTTLE PO PRN (14:56)
[2021-05-29] MEDS ORDERED: IBUPROFEN 400 MG TABLET (FP) PO PRN (14:56)
[2021-05-29] MEDS ORDERED: MAGNESIUM HYDROX 2400MG/30ML ORAL SUSPENSION 30 ML CUP PO PRN (14:56)
[2021-05-29] MEDS ORDERED: LACTULOSE 20 GM/30 ML UDC (FOR ORAL USE ONLY) PO PRN (16:13)
[2021-05-29 16:36] VITALS: BMI 25.8
[2021-05-29] MEDS ORDERED: INSULIN (NOVOLOG) ASPART 100 UNITS/ML 10ML VIAL ONE (18:00)
[2021-05-29] MEDS ORDERED: hydrOXYzine PAMOATE 25 MG CAPSULE (FP) PO SCH (18:00)
[2021-05-29] MEDS ORDERED: TUBERCULIN PPD 5 TU/0.1ML VIAL ID ONE ×2 (18:02→21:54)
[2021-05-29] MEDS: NICOTINE 7 MG/24 HOURS TOPICAL PATCH TD SCH (18:09)
[2021-05-29] MEDS ORDERED: INSULIN (NOVOLOG) ASPART 100 UNITS/ML 10ML VIAL SQ ONE (18:33)
[2021-05-29] MEDS: ATORVASTATIN CA 40 MG TABLET (FP) PO SCH (21:04)
[2021-05-29] MEDS: THIAMINE HCL 100 MG TABLET (FP) PO SCH (21:05)
[2021-05-29] MEDS: MIRTAZAPINE 15 MG TABLET (FP) PO SCH (21:05)
[2021-05-29] MEDS: INSULIN (LEVEMIR) 100 UNITS/ML UNITS SQ SCH (21:09)
[2021-05-29] MEDS: INSULIN SLIDING SCALE (NOVOLOG) 1 VIAL SQ SCH (21:09)
[2021-05-29] MEDS ORDERED: risperiDONE 2 MG TABLET PO SCH ×2 (22:00)
[2021-05-29] MEDS ORDERED: MELATONIN 5 MG TABLETS PO SCH (22:00)
[2021-05-30] MEDS ORDERED: INSULIN (NOVOLOG) ASPART 100 UNITS/ML 10ML VIAL ONE ×3 (06:54→22:04)
[2021-05-30] MEDS: INSULIN SLIDING SCALE (NOVOLOG) 1 VIAL SQ SCH ×5 (08:19→21:55)
[2021-05-30] MEDS ORDERED: methaDONE HCL 10 MG TABLET PO SCH (09:45)
[2021-05-30] MEDS ORDERED: methaDONE HCL 10 MG TABLET ONE (11:29)
[2021-05-30] MEDS ORDERED: methaDONE HCL 40 MG DISPERSABLE TABLET ONE (11:30)
[2021-05-30] MEDS: PRENATAL VITAMINS W/ FOLIC ACID TABLET (FP) PO SCH (11:43)
[2021-05-30] MEDS: LISINOPRIL 20 MG TABLET PO SCH (11:43)
[2021-05-30] MEDS: ASPIRIN 81 MG CHEWABLE TABLETS PO SCH (11:43)
[2021-05-30] MEDS: NICOTINE 7 MG/24 HOURS TOPICAL PATCH TD SCH (11:43)
[2021-05-30] MEDS: PANTOPRAZOLE 40 MG TABLET PO SCH (11:44)
[2021-05-30 13:16] LABS: HEMATOCRIT 34.6 % (35.4-49); HEMOGLOBIN 11.6 GM/dL (11.7-16.9); MCH 26.5 pg (25.7-33.7); MCHC 33.6 g/dl (32.0-35.9); MEAN CELL VOLUME 78.8 fl (80-96); MEAN PLT VOLUME 9.3 fl (7.5-11.1); PLATELET COUNT 77 10^3/uL (134-434); RDW 13.3 % (11.9-15.9); WHITE BLOOD COUNT 2.7 K/mm3 (4.0-10.0)
[2021-05-30 13:40] LABS: CALCIUM 8.6 mg/dL (8.5-10.1)
[2021-05-30 13:41] LABS: BLOOD UREA NITROGEN 13.2 mg/dL (7-18)
[2021-05-30 13:44] LABS: CREATININE 0.6 mg/dL (0.55-1.3)
[2021-05-30 13:45] LABS: BILIRUBIN,TOTAL 0.2 mg/dL (0.2-1); TOT PROT 6.7 g/dl (6.4-8.2)
[2021-05-30] MEDS ORDERED: risperiDONE 2 MG TABLET PO SCH ×2 (14:06→14:11)
[2021-05-30] MEDS ORDERED: BACITRACIN 0.9 GM PACKET ONE (15:19)
[2021-05-30] MEDS: MIRTAZAPINE 15 MG TABLET (FP) PO SCH (21:53)
[2021-05-30] MEDS: ATORVASTATIN CA 40 MG TABLET (FP) PO SCH (21:54)
[2021-05-30] MEDS: THIAMINE HCL 100 MG TABLET (FP) PO SCH (21:54)
[2021-05-30] MEDS: INSULIN (LEVEMIR) 100 UNITS/ML UNITS SQ SCH (21:55)
[2021-05-30] MEDS ORDERED: INSULIN (LEVEMIR) 100 UNITS/ML UNITS SQ ONE (22:04)
[2021-05-31] MEDS ORDERED: methaDONE HCL 10 MG TABLET ONE (04:04)
[2021-05-31] MEDS ORDERED: methaDONE HCL 40 MG DISPERSABLE TABLET ONE (04:04)
[2021-05-31 06:41] VITALS: TEMP 97.1
[2021-05-31] MEDS: INSULIN SLIDING SCALE (NOVOLOG) 1 VIAL SQ SCH ×2 (06:45→12:33)
[2021-05-31] MEDS ORDERED: INSULIN (NOVOLOG MIX 70/30) 100 UNITS/ML MDV SQ ONE (06:50)
[2021-05-31 09:10] VITALS: BP 117/74; PULSE 70
[2021-05-31] MEDS ORDERED: PT OWN MED DRAWER 7, Y5N ONE (10:18)
[2021-05-31] MEDS: PANTOPRAZOLE 40 MG TABLET PO SCH (10:30)
[2021-05-31] MEDS: NICOTINE 7 MG/24 HOURS TOPICAL PATCH TD SCH (10:30)
[2021-05-31] MEDS: ASPIRIN 81 MG CHEWABLE TABLETS PO SCH (10:30)
[2021-05-31] MEDS: LISINOPRIL 20 MG TABLET PO SCH (10:30)
[2021-05-31] MEDS: PRENATAL VITAMINS W/ FOLIC ACID TABLET (FP) PO SCH (10:30)
[2021-05-31] MEDS ORDERED: INSULIN (NOVOLOG) ASPART 100 UNITS/ML 10ML VIAL ONE (11:51)
== END 2021-05-31 16:13 | disposition left against medical advice (07) | DRG 894 ==
LOC: YASAS 13:42 → Y3E 15:20
PROVIDERS: ADMIT Allergy & Immunology; ATTEND Allergy & Immunology
PROC: HZ42ZZZ Group Counseling for Substance Abuse Treatment, Cognitive-Behavioral (ICD-10-PCS; principal; 2021-05-29)
DX: F10.20 Alcohol dependence, uncomplicated (principal); F11.20 Opioid dependence, uncomplicated; F17.210 Nicotine dependence, cigarettes, uncomplicated; F32.9 Major depressive disorder, single episode, unspecified; F25.0 Schizoaffective disorder, bipolar type; I10 Essential (primary) hypertension; E11.9 Type 2 diabetes mellitus without complications; E78.5 Hyperlipidemia, unspecified; M54.59 Other low back pain; G89.29 Other chronic pain; B19.20 Unspecified viral hepatitis C without hepatic coma; K59.01 Slow transit constipation; Z79.4 Long term (current) use of insulin; Z56.0 Unemployment, unspecified
CPT/HCPCS: 36415; 80053; 82962; 85027; 86593; 86780; 93005; 93010